=== PATIENT | female | born 1945 | race Caucasian/White ===

== ENCOUNTER → 2018-05-03 | Outpatient (REF) ==
--- NOTE | 2018-05-04 08:32 | RADIOLOGY IMAGING REPORT ---
FACILITY: [facility] [place] PATIENT NAME: BIN GIBBS : [id number] MR: [id number] V: [id number] EXAM DATE: ORDERING PHYSICIAN: SHIVANI RANGEL TECHNOLOGIST: Kathie Valdez PROCEDURE:BILATERAL DIAGNOSTIC DIGITAL MAMMOGRAM WITH CAD ASSISTED INTERPRETATION & 3D TOMOSYNTHESIS COMPARISON:None; apparently the patient's prior mammograms were done remotely in [place] & are not available. INDICATIONS:LONGSTANDING PALPABLE LT BREAST LUMP FINDINGS: Moderately dense fibroglandular tissue is seen throughout the breasts. Dense vascular calcifications & coarse microcalcifications are seen bilaterally. In the 9 o'clock position of the Left breast is a large polylobular densely calcified mass measuring 2.5 x 1.8 x 1.9cm. This likely represents a large calcified fibroid or possibly an old calcified hematoma. There is no demonstration of malignant appearing mass, malignant appearing calcification or other secondary sign of malignancy in either breast. DIAGNOSTIC CATEGORY 2--BENIGN FINDING. RECOMMENDATIONS: ROUTINE MAMMOGRAM AND CLINICAL EVALUATION. IMPRESSION: BIRADS 2: Benign finding. Large polylobular densely calcified mass in the 9 o'clock position of the Left breast likely represents a large calcified fibroadenoma or possibly an old calcified hematoma or other benign calcified mass. Dictated by: Marylu Medel M.D. on 05/03/2018 at 17:50 Transcribed by: OSWALDO on 05/04/2018 at 6:50 Approved by: Marylu Medel M.D. on 05/04/2018 at 8:31 [facility]
== END ==
LOC: MAMO 01:34
PROVIDERS: ATTEND Family Medicine
DX: N63.20 Unspecified lump in the left breast, unspecified quadrant (principal); R92.1 Mammographic calcification found on diagnostic imaging of breast
CPT/HCPCS: 77062; 77066